=== PATIENT | female | born 1985 | race American Indian/Alaskan Native ===

== ENCOUNTER 2021-09-10 17:34 | Emergency (ER) | payer OTHER, MEDICAID ==
[2021-09-10 20:01] VITALS: BP 166/113
[2021-09-11 01:28] LABS: Bacteria,Urine 4+ /HPF (Negative); Bilirubin,Urine NEG (Negative); Blood,Urine MOD (Negative); Color,Urine Yellow (Yellow); Mucus,Urine 2+ /HPF; Urobilinogen,Urine < 2.0 mg/dL (<2.0)
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
== END 2021-09-11 01:53 | disposition home or self-care (01) ==
LOC: ED 17:34
DX: N39.0 Urinary tract infection, site not specified (principal); Z88.0 Allergy status to penicillin
CPT/HCPCS: 81001; 87086; 99283